=== PATIENT | female | born 1985 | race African-American/Black ===

== ENCOUNTER 2022-09-08 21:28 | Emergency (ER) | payer OTHER ==
[~2022-09-08 21:28] MED LIST: NOCURR
[2022-09-08 22:16] LABS: AMPHET/METH SCREEN,URINE NEGATIVE (NEGATIVE); BARBITURATE SCREEN, URINE NEGATIVE (NEGATIVE); BENZODIAZEPINES SCREEN,URINE NEGATIVE (NEGATIVE); CANNABINOID SCREEN,URINE POSITIVE (NEGATIVE); COCAINE SCREEN,URINE NEGATIVE (NEGATIVE); METHADONE SCREEN, URINE NEGATIVE (NEGATIVE); OPIATE SCREEN,URINE NEGATIVE (NEGATIVE); PHENCYCLIDINE SCREEN,URINE NEGATIVE (NEGATIVE)
== END 2022-09-09 00:10 | disposition left against medical advice (07) ==
LOC: EMS 21:29
DX: R06.02 Shortness of breath (principal); R07.89 Other chest pain; Z79.899 Other long term (current) drug therapy; Z53.21 Procedure and treatment not carried out due to patient leaving prior to being seen by health care provider
CPT/HCPCS: 80307; 99281